=== PATIENT | female | born 1940 | race Caucasian/White ===

== ENCOUNTER → 2017-09-07 | Outpatient (CLI) | payer MEDICARE ==
[~2017-09-07] MED LIST: CALCIUM 600 +1 EAC8 PO; CELEBREX 200 M200 M1 PO; CELEBREX PO; COUMADIN 3 MG TA3 M1 PO; FISH OIL 1,001000 M2 PO; HYDROCHLOROTH12.5 M1 PO; IBUPROFEN 200200 M1 PO; LIPITOR 20 MG T20 M1 PO; NAPROSYN500 MG PO; NEURONTIN 300300 M1 PO; NORVASC10 MG PO; OMEPRAZOLE 20 M20 M1 PO; TRAMADOL 50 MG50 MG PO; TRAZODONE HCL50 MG PO; VASOTEC10 MG PO; ZANTAC 150MG T150 M1 PO; ZOLOFT50 MG PO; ZYRTEC10 M5 PO
--- NOTE | 2017-09-22 09:02 | PAINCON ---
[place] [address] PAIN MANAGEMENT CONSULTATION Name: ANTHONY MOORE [id number] Admission: 09/07/17 Attend Phys: [place] Hernadez DO Discharge: Date of : 40 Report #: [id number] THIS REPORT FOR: //name// CC: [place] Lange MD DATE OF SERVICE: 09/07/2017 REFERRING PHYSICIAN: Debbie Lange MD CHIEF COMPLAINT: Low back pain, right lower extremity pain and paresthesias. HISTORY OF PRESENT ILLNESS: As you know, the patient is a very pleasant 76-year-old female, who returns today in followup visit to undergo next in a series of lumbar epidural injections under fluoroscopic guidance. The patient placed her current pain score 7/10. She reports 75% improvement in overall pain with previous epidural injection. She returns today requesting next in a series to build on success of previous intervention. The patient has had no new injury or trauma that may have led to recurrence of symptoms. ALLERGIES: MORPHINE, MEPERIDINE. CURRENT MEDICATIONS: Amlodipine, atorvastatin, calcium carbonate, Zyrtec, omega 3 fish oil, enalapril, gabapentin, hydrochlorothiazide, omeprazole, ranitidine, sertraline, trazodone, warfarin and Celebrex. SOCIAL HISTORY: The patient denies tobacco, alcohol, IV or illicit drug use. She is retired, retired years ago, unaccompanied today. IMAGING: No new imaging available. PHYSICAL EXAMINATION: VITAL SIGNS: Blood pressure 146/64, pulse 101, respiratory rate 16, unlabored. The patient is 94% on room air, current temperature 97.8 degrees Fahrenheit, height 5 feet 5 inches tall, weight 172.6 ____, BMI calculated 28.7. GENERAL: Well-developed, well-nourished, well-hydrated 76-year-old female appearing stated age, placing current pain score 7/10. HEENT: Normocephalic, atraumatic. Pupils equal, round, reactive to light. EXTREMITIES: Show no clubbing, no cyanosis, no edema. MUSCULOSKELETAL: Lower extremity strength remains symmetrical 5/5, intact to light touch from L1 through S2 dermatomes. Seated straight leg raising negative. Supine straight leg raising positive on the right with an L5 dermatomal distribution. FAROOQ test negative. Gait is mildly antalgic favoring right [place] [address] PAIN MANAGEMENT CONSULTATION Name: ANTHONY MOORE Room: [facility]#: [id number] Admission: 09/07/17 Attend Phys: [place] Hernadez DO Discharge: Date of : 40 Report #: [id number] ASSESSMENT: 1. Symptomatic lumbar radiculopathy. 2. Spinal stenosis of lumbar spine. 3. Displacement of lumbar intervertebral disk with radiculopathy. 4. Lumbosacral spondylosis with radiculopathy. 5. Facet arthropathy of the lumbar spine. 6. Chronic intractable pain. PLAN: 1. The patient returns today in followup visit to undergo next in the series of epidural injections. The patient reports 75% improvement in overall pain with previous epidural injection provided on 06/22/2017. She returns today without new injury or new trauma, requesting next in a series of epidural injections, has been advised the risks and benefits of the procedure, states understood and wished to proceed. 2. No medication changes were made at today's visit. The patient will restart her Coumadin today. Continue her Coumadin as directed. She will follow up with the PCP for adjustments in this therapy. 3. We will see the patient back in followup visit on an as needed basis for possible next in a series of epidural injections. She was advised she will need to discontinue Coumadin 5 days prior to that procedure. PROCEDURE NOTE DESCRIPTION OF PROCEDURE: L5-S1 right paramedian epidural steroid injection under fluoroscopic guidance. After obtaining written consent, the patient was taken back to fluoroscopy suite, placed in prone position with pillow under abdomen to decrease lumbar lordosis. Skin overlying lumbosacral area then prepped and draped in aseptic fashion. Lumbar intervertebral spaces identified by AP fluoroscopy. Skin and subcutaneous tissue overlying target site of injection was anesthetized with 3 mL of 1% lidocaine. A 20-gauge 3-1/2 inch Tuohy needle advanced under fluoroscopic guidance towards the epidural space using a right paramedian approach. Epidural space identified using loss of resistance to air technique. After negative aspiration for heme or cerebrospinal fluid, 1 mL of Omnipaque was injected. Lumbar epidurogram was confirmed using both AP and lateral fluoroscopy. After negative aspiration for heme or cerebrospinal fluid, 5 mL of a solution containing 2 mL 40 mg per mL, 80 mg total triamcinolone, 3 mL lidocaine 1% injected slowly. Needle retracted retirement, flushed with 1 mL of 1% lidocaine and removed. Sterile bandage placed over injection site. No new motor deficits present in the lower extremity following procedure. The patient tolerated procedure well, carefully escorted [place] [address] PAIN MANAGEMENT CONSULTATION Name: ANTHONY MOORE Room: [facility]#: [id number] Admission: 09/07/17 Attend Phys: [place] Hernadez DO Discharge: Date of : 40 Report #: [id number] stable condition. No apparent complications. After meeting discharge criteria, the patient discharged home. <ELECTRONICALLY SIGNED> By: [place] Hernadez DO 09/22/1702 0916 1956Jakatia Hernadez DO /nt
== END | disposition home or self-care (01) ==
LOC: M.PC 00:57
DX: M51.16 Intervertebral disc disorders with radiculopathy, lumbar region (principal); M47.27 Other spondylosis with radiculopathy, lumbosacral region; Z98.890 Other specified postprocedural states; G89.29 Other chronic pain; Z79.899 Other long term (current) drug therapy; Z88.8 Allergy status to other drugs, medicaments and biological substances

== ENCOUNTER → 2017-11-05 | Outpatient (CLI) | payer MEDICARE ==
--- NOTE | 2017-11-11 14:44 | PAINCON ---
[address] [address] PAIN MANAGEMENT CONSULTATION Name: ANTHONY MOORE [facility] Hoang#: [id number] Admission: 11/05/17 Attend Phys: Sebastian Olvera MD Discharge: Date of : 40 Report #: [id number] THIS REPORT FOR: //name// CC: Debbie Olvera DATE OF SERVICE: 11/05/2017 CHIEF COMPLAINT: Pain in the right thigh with numbness. FOLLOWUP HISTORY: The patient is a 76-year-old female who has been seen in the pain clinic in the past by Dr. Hernadez. She has undergone epidural steroid injections in the lumbar area and gleaned benefits from these. She returns today indicating that her pain has increased and rates it as an 8/10. This is my first time meeting her. She states that the pain has improved after epidural steroid injections in the past. It is improved greater than 85%. She notes that gabapentin and Celebrex are helpful. Pain is worse when she is standing, walking and has noted some changes since we have been experiencing the cold weather. She notes that rest is helpful. She is on Coumadin and has stopped her Coumadin for the last 5 days with the desired to undergo an epidural steroid injection at this time. She has undergone epidural steroid injections with Dr. Lugo earlier. She felt that those injections at that time were equally beneficial. Notes that her pain is exacerbated by many activities of daily living. ALLERGIES: MORPHINE, DEMEROL. MEDICATIONS: Review of her current medications include amlodipine 10 mg daily, Lipitor 20 mg daily, calcium and vitamin D3 tablets, Zyrtec 10 mg daily, fish oil 1000 mg, Vasotec 10 mg tablets, 20 mg total daily, gabapentin 300 mg at bedtime, hydrochlorothiazide 12.5 mg 2 tabs daily, omeprazole 20 mg b.i.d., Zantac 150 mg at bedtime, Zoloft 50 mg, total 400 mg daily, trazodone 50 mg at bedtime, Coumadin 3.5 mg daily, Celebrex 375 mg b.i.d. PAST MEDICAL HISTORY: 1. Hypertension. 2. Hyperlipidemia. 3. Seasonal allergies. 4. Chronic low back pain. 5. Chronic lumbar radicular symptoms. 6. Gastroesophageal reflux disease. 7. Depression. 8. 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 9. Degenerative joint disease. 10. [place] [address] PAIN MANAGEMENT CONSULTATION Name: ANTHONY MOORE Room: [facility]#: [id number] Admission: 11/05/17 Attend Phys: Sebastian Olvera MD Discharge: Date of : 40 Report #: [id number] PAST SURGICAL HISTORY: 1. Cholecystectomy. 2. Total knee arthroplasty. 3. Second total knee arthroplasty. 4. Rotator cuff repair. SOCIAL HISTORY: She is retired, has not worked since 2005. Denies tobacco, denies use of alcohol or drugs. PAIN CLINIC ASSESSMENT: 1. History of osteoarthritis, has had knee surgeries. The patient has had a total of 4 knee surgeries. Height 5 feet 5 inches, weight 166 pounds, BMI is 28. 2. Vital signs: Blood pressure 143/82, heart rate 89, respiratory rate 16, room air saturation 96%, temperature is 98.0. Pain score 8/10. 3. Fall risk: The patient has not fallen in the last 3 months. 4. The patient is on a blood thinner, Coumadin and has stopped not taken it from the last 5 days. 5. History of hypertension. The patient is not being treated for hypertension. 6. Opioid therapy greater than 6 weeks. The patient is not being treated by opioid therapy for greater than 6 weeks. 7. Risk assessment tool. 8. Functional assessment tool. If we could place 50/70 indicating severe interference with daily activities secondary to pain. 9. Recreational drug use. The patient denies recreational drug use. 10. Tobacco. The patient denies tobacco use. 11. Alcoholic beverages. The patient denies use of alcoholic beverages. REVIEW OF SYSTEMS: Questionnaire, the patient is wearing corrective eyewear, notes some back pain, some difficulty with ambulation, insomnia. PHYSICAL EXAMINATION: GENERAL: The patient is a well-developed white female. Appearance appears her stated age. Orientation: The patient is alert and oriented x 3. Affect appears appropriate. HEENT: Normocephalic, atraumatic. Extraocular eye muscles intact. No significant sinus complaints. Hearing within normal limits. NECK: Without JVD or bruits. LUNGS: Clear to auscultation. HEART: Regular rate. ABDOMEN: Nontender. MUSCULOSKELETAL: Normal alignment without significant kyphosis, scoliosis or lordosis. Upper extremity muscle strength is judged to be 5/5 for the major muscle groups with normal muscle bulk lower extremity. The patient has pain and discomfort, which is radiating down in the [place] [address] PAIN MANAGEMENT CONSULTATION Name: ANTHONY MOORE Room: [facility] TONY Hoang#: [id number] Admission: 11/05/17 Attend Phys: Sebastian Olvera MD Discharge: Date of : 40 Report #: [id number] involving the right thigh with tingling, numbness, and positive straight leg raise. IMPRESSION: 1. Symptomatic lumbar radiculopathy. 2. Severe spinal stenosis of the lumbar spine. 3. Displacement of the lumbar intervertebral disk with radiculopathy. 4. Lumbosacral spondylosis with radiculopathy. 5. Lumbar facet arthropathy. 6. Lumbar degeneration. 7. Chronic intractable pain. 8. History of knee surgeries x 4. RECOMMENDATIONS: We discussed treatment options with the patient. At this juncture, she is having pain and discomfort, which is radiating down to the posterior portion of her leg. She has undergone epidural steroid injections in the past and found that they were beneficial. At this juncture, she would like to proceed with another epidural steroid injection. Given that the procedures in the past gave her 85% improvement. She would like to proceed at this juncture. She has had no complications from the procedures. We discussed the possible complication of the procedures, which could include infection, bleeding, increased muscle soreness, pain relief, nerve damage and the patient elects to proceed. PROCEDURE NOTE: The patient was taken to the procedure room. She was assisted while getting on the table for positioning. Her back was sterilely prepped. A pillow was placed under her abdomen for bolstering. Fluoroscopy using the anterior, posterior as well as lateral viewing were provided. After appropriate location of the target area in the L5-S1 distribution, this area had been sterilely prepped with Betadine. 0.25% bupivacaine was infiltrated. A 17-gauge Tuohy with loss of resistance technique was used to gain access to the epidural space. There was no CSF, heme or paresthesia. Total of 80 mg Depo-Medrol, 40 mg triamcinolone and 2 mL of 0.25% bupivacaine was injected. The patient tolerated the procedure well. There were no complications. She remained in the pain clinic for an appropriate amount of time. We would like to thank you for letting us participate in her care. We hope she continues to improve. <ELECTRONICALLY SIGNED> By: Sebastian Olvera MD 11/11/17 1444 [id number]. Himanshu Olvera MD /[facility]
== END | disposition home or self-care (01) ==
LOC: M.PC 01:35
DX: M51.16 Intervertebral disc disorders with radiculopathy, lumbar region (principal); M47.27 Other spondylosis with radiculopathy, lumbosacral region; G89.29 Other chronic pain; Z98.890 Other specified postprocedural states; I10 Essential (primary) hypertension; F11.20 Opioid dependence, uncomplicated; Z90.49 Acquired absence of other specified parts of digestive tract; E78.5 Hyperlipidemia, unspecified; Z88.8 Allergy status to other drugs, medicaments and biological substances; K21.9 Gastro-esophageal reflux disease without esophagitis; F32.9 Major depressive disorder, single episode, unspecified; Z79.01 Long term (current) use of anticoagulants; M19.90 Unspecified osteoarthritis, unspecified site

== ENCOUNTER → 2018-01-21 | Outpatient (CLI) | payer MEDICARE ==
--- NOTE | 2018-02-10 13:50 | PAINCON ---
[address] [address] PAIN MANAGEMENT CONSULTATION Name: ANTHONY MOORE Room: [facility] TONY Hoang#: [id number] Admission: 01/21/18 Attend Phys: Sebastian Olvera MD Discharge: Date of : 40 Report #: [id number] THIS REPORT FOR: //name// CC: Debbie Olvera DATE OF SERVICE: 01/21/2018 FOLLOWUP COMPLAINT: Pain in the right thigh with numbness and tingling. FOLLOWUP HISTORY: The patient is a 76-year-old female who has been seen in the pain clinic because of lumbar radiculopathy. She has undergone epidural steroid injections in the past. She has gleaned benefits from these. She has noticed a worsening of her pain over the last few weeks. Pain is now more problematic in the lower portion of her back. It radiates down the right side into the right anterior portion of her thigh. She feels that the epidural steroid injections in the past have been helpful. She rates her pain as 9-1/2 today. It is still quite problematic. She continues to use her gabapentin and Celebrex to help control the pain and discomfort. No new problems with bowel or bladder dysfunction. She is alert and oriented with use of her gabapentin medication. She is not having any GI complaints at this juncture with use of Celebrex. She has stopped taking her Coumadin and has not been on this for about 5 days. She has returned with the resumption if she would undergo an epidural steroid injection at this point. ALLERGIES: MORPHINE, DEMEROL. CURRENT MEDICATIONS: Amlodipine 10 mg daily, Lipitor 20 mg daily, calcium and vitamin D3 tablets, Zyrtec 10 mg daily, fish oil 1000 mg, Vasotec 10 mg tablets, total of 20 mg daily, gabapentin 300 mg at bedtime, hydrochlorothiazide 12.5 mg 2 tablets daily, omeprazole 20 mg b.i.d., Zantac 150 mg at bedtime, Zoloft 50 mg, total of 400 mg daily, trazodone 50 mg at bedtime, Coumadin 2.5 mg daily, Celebrex 375 mg b.i.d. PAIN CLINIC ASSESSMENT: 1. History of osteoarthritis. The patient does have osteoarthritis. She has had a total of 4 knee surgeries. 2. Height 5 feet 5 inches, weight 167 pounds, BMI is 28.2. 3. Vital signs: Blood pressure 145/71, heart rate 88, respiratory rate 16, room air saturation 94%, temperature 98. 4. Pain score 9.5/10. 5. Fall risk. The patient has not fallen in the last 3 months. 6. Blood thinner. The patient is on Coumadin. She has stopped it 5 days prior to admission in preparation of an epidural steroid injection. She will resume it after procedure is completed. 7. History of hypertension and the patient has [place] [address] PAIN MANAGEMENT CONSULTATION Name: ANTHONY MOORE [id number] Admission: 01/21/18 Attend Phys: Sebastian Olvera MD Discharge: Date of : 40 Report #: [id number] hypertension. 8. Opioid therapy greater than 6 weeks. The patient has not been treated with opioid therapies. 9. Risk assessment tool. 10. Functional assessment tool. The patient placed her pain score 50/70 indicating severe interference with activities of daily living secondary to pain. 11. Recreational drug use. The patient denies use of recreational drugs. 12. Tobacco: The patient denies use of tobacco. 13. Alcoholic beverages. The patient denies use of alcohol beverages. PHYSICAL EXAMINATION: GENERAL: The patient is a well-developed, well-nourished white female. She appears her stated age. She is alert and oriented x 3. Her affect is appropriate. Speech is fluent. HEENT: Normocephalic, atraumatic. Extraocular eye muscles intact. Sclerae nonicteric. Mucous membranes are moist. Hearing is within normal limits. NECK: Without JVD or bruits. Good range of motion. LUNGS: Clear to auscultation without rales or rhonchi. HEART: Regular rate. S1, S2. ABDOMEN: Nontender. MUSCULOSKELETAL: Without significant kyphosis or lordosis. The patient has some scoliosis by imaging with fluoroscopy, but not significant when the patient is standing. Upper extremity muscle strength is noted to be 5/5 for the major muscle groups in the upper extremity. Bulk is symmetric. Lower extremity, the patient has pain and discomfort which is radiating down into the right leg. States that the pain is most problematic in the area of the L2-L3 area. Notes some burning tenderness and some perception of weakness in the muscle in this area. IMPRESSION: 1. Lumbar radiculopathy in the L2-L3 dermatomal distribution on the right with burning and dysesthesia as well as some perception of muscle weakness. 2. Severe spinal stenosis of the lumbar spine. 3. Displacement of the lumbar intervertebral disk with radiculopathy. 4. Lumbosacral spondylosis with radiculopathy. 5. Lumbar facet arthropathy. 6. Lumbar degeneration. 7. Chronic intractable pain. 8. History of 4 knee surgeries. RECOMMENDATIONS: We discussed treatment options with the patient. The risks and benefits of an epidural steroid injection were again reviewed. Possible complication of the procedure will be reviewed. They include but are not limited to infection, increased muscle soreness, headache, worsening of pain, muscle weakness, spinal headache, paresis, patient elects to proceed[place] [address] PAIN MANAGEMENT CONSULTATION Name: ANTHONY MOORE Room: [facility] Hoang#: [id number] Admission: 01/21/18 Attend Phys: Sebastian Olvera MD Discharge: Date of : 40 Report #: [id number] states that she has good gotten greater than 50% improvement in the past when she has undergone these procedures and would like to proceed. PROCEDURE NOTE: The patient was taken to the fluoroscopy area. She was assisted in getting on the fluoroscopy table. She was placed in the prone position. Her back was sterilely prepped with a Betadine solution. Fluoroscopy using anterior, posterior as well as lateral viewing were used to identify the appropriate placement of the needle in the L2-L3 interspace. This area had been sterilely prepped with Betadine and 0.25% bupivacaine was infiltrated. A 17-gauge Tuohy with loss of resistance technique was used to gain access to the epidural space. There was no CSF, heme or paresthesia. Total of 80 mg Depo-Medrol, 40 mg triamcinolone and 2 mL of 0.25% bupivacaine was injected. The patient tolerated the procedure well. There were no complications. A total of 20 seconds fluoroscopy time was used. Band-Aid was placed. There was no bleeding. She will follow up in the future as needed. She will resume her Coumadin tomorrow. We would like to thank you for letting us participate in her care. We hope she continues to improve. <ELECTRONICALLY SIGNED> By: Sebastian Olvera MD 02/10/18 1350 [id number] [id number]. Himanshu Olvera MD /nt
== END | disposition home or self-care (01) ==
LOC: M.PC 04:36
DX: M51.16 Intervertebral disc disorders with radiculopathy, lumbar region (principal); G89.29 Other chronic pain; I10 Essential (primary) hypertension; M48.061 Spinal stenosis, lumbar region without neurogenic claudication; M19.90 Unspecified osteoarthritis, unspecified site; M47.27 Other spondylosis with radiculopathy, lumbosacral region; M46.96 Unspecified inflammatory spondylopathy, lumbar region; Z98.890 Other specified postprocedural states; Z88.8 Allergy status to other drugs, medicaments and biological substances; Z79.899 Other long term (current) drug therapy; Z79.01 Long term (current) use of anticoagulants; Z79.891 Long term (current) use of opiate analgesic

== ENCOUNTER → 2018-04-15 | Outpatient (CLI) | payer MEDICARE ==
--- NOTE | 2018-05-07 17:38 | PAINCON ---
[address] [address] PAIN MANAGEMENT CONSULTATION Name: ANTHONY MOORE Room: [facility] TONY Hoang#: [id number] Admission: 04/15/18 Attend Phys: Sebastian Olvera MD Discharge: Date of : 40 Report #: [id number] THIS REPORT FOR: //name// CC: Debbie Olvera DATE OF SERVICE: 04/15/2018 FOLLOWUP COMPLAINT: "Here for an epidural injection. I have pain in my low back and down in my right leg." FOLLOWUP HISTORY: The patient is a 77-year-old female who has been seen in the Pain Clinic because of pain and discomfort. She has had some pain in her right leg. She has undergone epidural steroid injections in the past and gleaned benefits from these. She returns today indicating that her pain continues to be somewhat problematic. It is increased again. She rates it as an 8-9/10. She feels that the pain is quite problematic at this juncture. She finds that some days she can "hardly walk." The patient is requesting a repeat injection. She does have some tingling down in her toes on the right. She had no complication from the last injection. She has stopped her Coumadin for the last 5 days in preparation for the injection. She continues to find gabapentin and Celebrex helpful. She notes that the pain is worse with activity, such as walking, standing, lifting and bending. Cold weather can exacerbate the discomfort as well. ALLERGIES: MORPHINE, DEMEROL. CURRENT MEDICATIONS: Amlodipine 10 mg, Lipitor 20 mg, calcium, D3 tablets, Zyrtec 10 mg, fish oil 1000 mg, Vasotec 10 mg - a total of 20 mg Vasotec, gabapentin 300 mg at bedtime, hydrochlorothiazide 12.5 mg two tablets daily, omeprazole 20 mg b.i.d., Zantac 150 mg at bedtime, Zoloft 50 mg, trazodone 50 mg at bedtime, Coumadin 2.5 mg daily, Celebrex 375 mg b.i.d. PAIN CLINIC ASSESSMENT: 1. History of osteoarthritis: The patient does have osteoarthritis. She had a total of 4 knee surgeries. 2. Height 5 feet 5 inches, weight 168 pounds, BMI is 28.1. 3. Pain intensity: 8-9/10. 4. Fall risk: The patient has not fallen in the last 3 months. 5. Blood thinner: The patient is on Coumadin; has been off her medication for 5 days with expectations of undergoing epidural steroid injection. 6. History of hypertension: The patient has not been treated for hypertension. 7. Opioid greater than 6 weeks: The patient has not been on opioid medications. 8. Risk assessment tool. 9. Functional assessment tool: The patient has a score of 50/70. [place] [address] PAIN MANAGEMENT CONSULTATION Name: ANTHONY MOORE Room: [facility] Viktor#: [id number] Admission: 04/15/18 Attend Phys: Sebastian Olvera MD Discharge: Date of : 40 Report #: [id number] 10. Recreational drug use: The patient denies use of recreational drugs. 11. Tobacco: The patient denies use of tobacco. 12. Alcoholic beverages: The patient denies use of alcoholic beverages. PHYSICAL EXAMINATION: GENERAL: The patient is a well-developed, well-nourished white female. She appears her stated age. She is alert and oriented x 3. Her affect is appropriate. Speech is fluent. HEENT: Normocephalic, atraumatic. Extraocular eye muscles intact. Sclerae nonicteric. Mucous membranes are moist. Hearing is within normal limits. NECK: Without JVD or bruits. Good range of motion. LUNGS: Clear to auscultation without rales or rhonchi. HEART: Regular rate. S1, S2. ABDOMEN: Nontender. MUSCULOSKELETAL: Without significant kyphosis or lordosis. The patient has some scoliosis with imaging and fluoroscopy findings. Upper extremity muscle strength is judged to be 5/5 for the major muscle groups in the upper extremity. Bulk symmetry is present. Lower extremities: The patient has pain and discomfort, which is radiating down into the right leg. It involves the L2-L3 area. The patient noticed some burning discomfort and weakness in the muscles in this area. IMPRESSION: 1. Lumbar radiculopathy in the L2-L3 dermatomal distribution on the right with burning and dysesthesia as well as some perception of muscle weakness. 2. Severe spinal stenosis of the lumbar spine. 3. 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 4. Lumbosacral spondylosis with radiculopathy. 5. Lumbar facet arthropathy. 6. Lumbar degeneration. 7. Chronic intractable pain. 8. History of 4 knee surgeries. RECOMMENDATIONS: We discussed treatment options with the patient. Risks and benefits of the injection were again reviewed. They include but are not limited to infection, increased muscle soreness, headache, bleeding, worsening of pain, no improvement in pain, paralysis, spinal headache. The patient elects to proceed. PROCEDURE NOTE: The patient was placed in the prone position on the examination table with assistance. Her back was sterilely prepped with Betadine solution. A pillow was placed under the abdomen to bolster and improve positioning. Fluoroscopy using anterior, posterior as well as lateral viewing was instituted. Her back was sterilely prepped with Betadine solution. A 0.25% bupivacaine was infiltrated in the right paramedian area at L2-L3. This area had been sterilely prepped with Betadine and infiltrated with 0.25% bupivacaine. A total [place] [address] [place] [address] PAIN MANAGEMENT CONSULTATION Name: ANTHONY MOORE Room: [facility]#: [id number] Admission: 04/15/18 Attend Phys: Sebastian Olvera MD Discharge: Date of : 40 Report #: [id number] of Depo-Medrol, 40 mg of triamcinolone and 2 mL of 0.25% bupivacaine was injected. The patient tolerated the procedure well. There were no complications. The patient's pain decreased from 8-9 to 0 at the time of discharge. A total of 11 seconds fluoroscopy time was used. We would like to thank you for letting us participate in her care. We hope she continues to improve. <ELECTRONICALLY SIGNED> By: Sebastian Olvera MD 05/07/18 [id number]. Himanshu Olvera MD /nt
== END ==
LOC: M.PC 04:59
DX: M54.16 Radiculopathy, lumbar region (principal)